=== PATIENT | male | born 1990 | race Hispanic/Latino ===

== ENCOUNTER 2019-01-20 14:22 | Emergency (ER) | payer OTHER ==
[2019-01-20] MEDS ORDERED: TETANUS/DIPHTHERIA TOXOID [ADULT] 0.5 ML VIAL IM ONE (14:42)
[2019-01-20] MEDS ORDERED: LIDOCAINE HCL 1% 20 ML VIAL ONE (15:16)
== END 2019-01-20 16:44 | disposition home or self-care (01) ==
LOC: EDH 14:22
DX: S61.411A Laceration without foreign body of right hand, initial encounter (principal); X58.XXXA Exposure to other specified factors, initial encounter; Y93.89 Activity, other specified; Y92.89 Other specified places as the place of occurrence of the external cause; Y99.8 Other external cause status
CPT/HCPCS: 12042; 73130; 90471; 90714